=== PATIENT | female | born 1995 | race African-American/Black ===

== ENCOUNTER 2024-07-09 09:41 | Emergency (ER) | payer OTHER, SELFPAY ==
--- NOTE | 2024-07-09 | ECG_ITS ---
Test Reason : chest pain Blood Pressure : / mmHG Vent. Rate : 076 BPM Atrial Rate : 076 BPM P-R Int : 186 ms QRS Dur : 086 ms QT Int : 368 ms P-R-T Axes : 018 022 013 degrees QTc Int : 414 ms Normal sinus rhythm with sinus arrhythmia Possible Anterior infarct , age undetermined Abnormal ECG No previous ECGs available Referred By: Generic ED Physician Electronically Signed By:OLEGARIO GALAN MD
--- NOTE | ~2024-07-09 | XR_ITS ---
EXAMINATION: XR CHEST CLINICAL INFORMATION: chest pain COMPARISON: None available. TECHNIQUE: 2 views of the chest were obtained. FINDINGS: No significant abnormality is noted involving the heart, lungs, mediastinum, bony thorax or soft tissues. XR/XR chest 2V IMPRESSION: Unremarkable examination. Electronically signed by: Corrina Thacker MD 07/09/2024 01:00 PM [facility]
[2024-07-09 10:03] VITALS: BP 122/77; PULSE 78; RESP 20; TEMP 37; O2SAT 100; BMI 41.0
[2024-07-09 10:14] LABS: MANUAL DIFF FLAG NO
[2024-07-09 10:16] LABS: Basophils Percent Auto 0.4 % (0-2); Eosinophils Absolute Auto 0.1 X10*3/uL (0.0-0.4); Eosinophils Percent Auto 1.8 % (0-4); Hematocrit 39.7 % (37.0-47.0); Hemoglobin 12.7 g/dl (12.0-16.0); Imm Gran Abs Auto 0.01 X10*3/uL (0.00-0.03); Imm Gran Pct Auto 0.2 % (0.0-0.4); Lymphocytes Absolute Auto 2.1 X10*3/uL (1.2-4.9); Lymphocytes Percent Auto 46.1 % (20-40); Mean Corpuscular Hemoglobin 28.1 pg (27.0-33.0); Mean Corpuscular Volume 87.8 fL (80.0-98.0); Monocytes Absolute Auto 0.4 X10*3/uL (0.1-1.2); Monocytes Percent Auto 8.3 % (2-11); Neutrophils Absolute Auto 1.9 x10*3/uL (2.0-8.3); Neutrophils Percent Auto 43.2 % (45-73); Platelet Count 287 X10*3/uL (160-400); Red Blood Count 4.52 X10*6/uL (4.20-5.50); Red Cell Distribution Width 12.3 % (11.0-16.0); White Blood Count 4.5 X10*3/uL (4.8-10.8)
[2024-07-09 10:43] LABS: Alanine Aminotransferase 14 U/L (0-31); Albumin Level 4.2 g/dL (3.5-5.0); Alkaline Phosphatase 68 U/L (39-117); Anion Gap 11 (12-20); Aspartate Amino Transferase 15 U/L (5-31); Bilirubin Total 0.6 mg/dL (0.0-1.0); Blood Urea Nitrogen 13 mg/dL (9-16); Carbon Dioxide 26 mmol/L (22-29); Chloride 107 mmol/L (96-108); Creatinine Clr Calc Pharmacy 178.3; Estimated Glomerular Filt Rate > 60; Glucose Random 100 mg/dL (60-115); Lipase 15 U/L (8-78); Magnesium 2.1 mg/dL (1.6-2.6); Potassium 3.8 mmol/L (3.3-5.1); Sodium 140 mmol/L (135-145); Total Protein 7.5 g/dL (6.5-8.0)
[2024-07-09 10:55] LABS: Troponin-I High Sensitivity < 2.7 ng/L (<3.5-17.0)
--- NOTE | 2024-07-09 11:47 | ED_ITS ---
HPI - Chest Pain General Chief Complaint: Chest Pain Stated Complaint: CP Time Seen by Provider: 07/09/24 11:39 Source: patient Mode of arrival: ambulatory Limitations: no limitations History of Present Illness ED Provider: ISMAEL HPI narrative: 29 yo female not on OCPs, GERD, endometriosis s/p hysterectomy in October who presents with c/o chest pain that is just there in the L chest worse with eating. She has no associated n/v, URI symptoms, dyspnea. The pain is worse when she eats. She is no longer on PPI. She denies NSAID use. She notes no chest wall pain. No recent travel or procedure. No drug use and no fam hx of early CAD MD complaint: chest pain Onset (ago): month(s) (1+) Timing of current episode: constant Prior episodes: No Onset: after eating Pain location: left chest Pain radiation: none Severity: moderate Quality: other ( pain ) Relieving factors: nothing Exacerbating factors: eating Treatment prior to arrival: none Related Data Previous Rx's ?Medication ?Instructions ?Recorded omeprazole 20 mg capsule,delayed 20 mg PO DAILY #30 caps 07/09/24 release Allergies Allergy/AdvReac Type Severity Reaction Status Date / Time No Known Allergies Allergy Verified 07/09/24 10:06 Review of Systems 2 Review of Systems: Constitutional : No Weight loss, No Fever, No Chills ENT/Mouth : No sore throat, No Rhinorrhea Eyes: No Eye Pain, No Swelling Cardiovascular : pos Chest Pain, no SOB, No Orthopnea, No Edema, No Palpitations Respiratory : No Cough, No Sputum Gastrointestinal : no Nausea, No Vomiting, No Diarrhea, No abdominal Pain, No Hematochezia, No Melena Genitourinary : No Dysuria, No Urinary Frequency Musculoskeletal : No joint pain, No Myalgias, No Joint Swelling Skin : No Skin Lesions, No rash Neuro : No Weakness, No Numbness, No Dizziness, No Headache All other systems reviewed and are negative PMFSH Past Medical History Attestation statement: The following information was validated with the patient. Source: old records reviewed Medical History Endometriosis GERD (gastroesophageal reflux disease) Surgical History (Updated 07/09/24 @ 12:11 by Laure Young DO) H/O: hysterectomy Social History Social History (Updated 07/09/24 @ 12:11 by Laure Young DO) Patient Tobacco Use Status: Never used Tobacco Use of substances other than those prescribed or required for medical reasons: No Advance Directives: No Physical Exam 2 Vital Signs: Vital Signs: Last Vital Signs Temp 98.6 F 07/09/24 10:03 Pulse 71 07/09/24 12:24 Resp 16 07/09/24 12:24 BP 144/99 H 07/09/24 12:24 Pulse Ox 98 07/09/24 12:24 O2 Del Method Room Air 07/09/24 12:24 BMI result Body Mass Index 41.0 Appearance: Alert. Oriented X3. No acute distress. Eyes: Pupils equal, round and reactive to light. ENT: Pharynx normal. Neck: Normal inspection. Neck supple. CVS: Normal heart rate and rhythm. Pulses normal. Chest wall: no ttp Respiratory: No respiratory distress. Breath sounds normal. Abdomen: Soft and nontender. Skin: Skin warm and dry. Normal skin color. Normal skin turgor. Extremities: No lower extremity edema. No calf ttp Neuro: Oriented X 3. No motor deficit. No sensory deficit. Medical Decision Making Medical Decision Making [facility] Narrative: 29 yo female not on OCPs, GERD, endometriosis s/p hysterectomy in October here with atypical chest pain brought on by eating - patient has no risk factors for ACS, she has no abdominal pain to suggest biliary colic. At this time PERC negative and given the hx of > 1 month and she looks well doubt dissection. I am going to obtain EKG, CXR, troponin x 1 and then start her back on her PPI if work up negative, can be referred to cards as outpatient Differential Diagnosis Differential Diagnoses: The differential diagnosis associated with the presentation includes GERD, atypical chest pain no ACS risk factors and EKG and trop flat PERC negative doubt dissection given > 1 month and brought on by food she has no abdominal pain so biliary colic unlikely Admission/Observation Consideration of admission/observation: Escalation of care including admission/observation considered work up negative stable for DC Lab Data [facility] Lab Attestation statement: I reviewed the patient's lab results. 07/09/24 10:09 07/09/24 10:09 Labs: Lab Results 07/09/24 Range/Units 10:09 WBC 4.5 L (4.8-10.8) X10*3/uL RBC 4.52 (4.20-5.50) X10*6/uL Hgb 12.7 (12.0-16.0) g/dl Hct 39.7 (37.0-47.0) % MCV 87.8 (80.0-98.0) fL MCH 28.1 (27.0-33.0) pg MCHC 32.0 (31.0-35.0) g/dl RDW 12.3 (11.0-16.0) % Plt Count 287 (160-400) X10*3/uL MPV 10.0 (9.4-12.3) fL Immature Gran % (Auto) 0.2 (0.0-0.4) % Neut % (Auto) 43.2 L (45-73) % Lymph % (Auto) 46.1 H (20-40) % Monroe % (Auto) 8.3 (2-11) % Eos % (Auto) 1.8 (0-4) % Baso % (Auto) 0.4 (0-2) % Lymph # (Auto) 2.1 (1.2-4.9) X10*3/uL Monroe # (Auto) 0.4 (0.1-1.2) X10*3/uL Eos # (Auto) 0.1 (0.0-0.4) X10*3/uL Baso # (Auto) 0.0 (0.0-0.2) X10*3/uL Abs Immat Gran (auto) 0.01 (0.00-0.03) X10*3/uL Absolute Neuts (auto) 1.9 L (2.0-8.3) x10*3/uL Absolute Nucleated RBC 0.000 (0.0-0.012) X10*3/uL Nucleated RBC % (auto) 0.0 (0.0-0.2) /100WBC PT 12.0 (10.9-12.4) SEC INR 1.0 (0.9-1.1) Sodium 140 (135-145) mmol/L Potassium 3.8 (3.3-5.1) mmol/L Chloride 107 (96-108) mmol/L Carbon Dioxide 26 (22-29) mmol/L Anion Gap 11 L (12-20) BUN 13 (9-16) mg/dL Creatinine 0.63 (0.5-1.4) mg/dL Estim Creat Clear Calc 178.3 Estimated GFR > 60 Random Glucose 100 (60-115) mg/dL Calcium 9.0 (8.4-10.2) mg/dL Magnesium 2.1 (1.6-2.6) mg/dL Total Bilirubin 0.6 (0.0-1.0) mg/dL AST 15 (5-31) U/L ALT 14 (0-31) U/L Alkaline Phosphatase 68 (39-117) U/L Troponin I High Sens < 2.7 (<3.5-17.0) ng/L Total Protein 7.5 (6.5-8.0) g/dL Albumin 4.2 (3.5-5.0) g/dL Lipase 15 (8-78) U/L Beta HCG, Quant < 2 mIU/mL Independent Interpretation I performed an independent interpretation of an: EKG and Plain X-Ray (normal ) Interpretation: Rate: 76 Rhythm: NSR Gowen: normal Normal P waves. Normal SAL. Normal QRS complex. ST T wave : normal no PREMA qTC: 414 prior studies: no acute ischemia The study has been interpreted contemporaneously by me. . Radiology Impression Discussion of test interpretation with radiology: I have reviewed the radiologist's reading. 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
[2024-07-09 12:02] LABS: HCG Quantitative < 2 mIU/mL
[2024-07-09 12:24] VITALS: BP 144/99; PULSE 71; RESP 16; O2SAT 98
[2024-07-09 12:59] VITALS: BP 144/99; PULSE 70; RESP 16; TEMP 37; O2SAT 98
== END 2024-07-09 13:00 | disposition home or self-care (01) ==
PROVIDERS: Physician Assistant Medical; Emergency Provider Emergency Medicine
DX: R07.89 Other chest pain (principal); K21.9 Gastro-esophageal reflux disease without esophagitis
CPT/HCPCS: 36415; 71046; 80053; 83690; 83735; 84484; 84702; 85025; 85610; 93005; 99283; 99285

== ENCOUNTER → 2024-07-09 09:59 | Outpatient (BNV) | payer SELFPAY | PROVIDERS: Emergency Provider Emergency Medicine; Visit Provider Internal Medicine Cardiovascular Disease | DX: R07.9 Chest pain, unspecified (principal) | CPT/HCPCS: 93010 ==